=== PATIENT | female | born 1980 | race American Indian/Alaskan Native ===

== ENCOUNTER 2020-10-22 18:29 | Emergency (ER) | payer SELFPAY | END 2020-10-22 18:30 | disposition left against medical advice (07) | LOC: ED 18:29 | DX: G43.909 Migraine, unspecified, not intractable, without status migrainosus (principal); Z53.21 Procedure and treatment not carried out due to patient leaving prior to being seen by health care provider ==

== ENCOUNTER 2021-06-07 13:24 | Emergency (ER) | payer MEDICARE ==
--- NOTE | 2021-06-07 14:59 | Emergency Department Report ---
ED General Adult HPI - General Chief complaint: Upper Respiratory Infection Stated complaint: DIZZY X 2 DAYS PUI?: Yes Time Seen by Provider: 06/07/21 14:51 Source: patient Mode of arrival: Ambulatory Limitations: No Limitations - History of Present Illness Initial comments: 40-year-old female who denies any significant past medical history presents to the ER today with complaints of flulike symptoms. Patient states that symptoms started about 2 days ago. She reports generalized body aches, ear pain, headache, mild dry cough and fever. She reports no wheezing or shortness of breath. She reports no chest pain. She states that her highest measured temp was 101.9 today. She has not taken anything for the fever. She denies any chills. She states that she did vomit twice. She denies any diarrhea or abdominal pain. She denies any UTI symptoms. She is status post hysterectomy. She denies any known ill contacts or recent travel. She has not had a flu vaccine or COVID-19 vaccine. MD Complaint: Flu like symptoms -: days(s) (2) Severity scale (0 -10): 10 - Related Data Previous Rx's Medication Instructions Recorded Last Taken Type Acetaminophen/Codeine [Tylenol 1 tab PO Q6H PRN #12 tab 06/07/21 Unknown Rx /Codeine # 3 tab] Fluconazole [Diflucan TAB] 150 mg PO QDAY 1 Days #3 tablet 06/07/21 Unknown Rx Ibuprofen [Motrin] 600 mg PO Q8H PRN #30 tablet 06/07/21 Unknown Rx cephALEXin [Keflex] 500 mg PO BID 7 Days #14 capsule 06/07/21 Unknown Rx Allergies Allergy/AdvReac Type Severity Reaction Status Date / Time No Known Allergies Allergy Verified 06/07/21 15:07 ED Review of Systems ROS: Stated complaint: DIZZY X 2 DAYS Other details as noted in HPI Comment: All other systems reviewed and negative Constitutional: fever ENT: ear pain. denies: throat pain, congestion Respiratory: cough. denies: shortness of breath, SOB with exertion, SOB at rest, wheezing Cardiovascular: denies: chest pain, palpitations Endocrine: no symptoms reported Gastrointestinal: nausea, vomiting. denies: abdominal pain, diarrhea, cons tipation, hematemesis, melena, hematochezia Genitourinary: denies: urgency, dysuria, discharge Musculoskeletal: myalgia. denies: back pain, joint swelling, arthralgia Skin: denies: rash, lesions, change in color, change in hair/nails, pruritus Neurological: denies: numbness, paresthesias, abnormal gait, vertigo Psychiatric: denies: anxiety, depression, auditory hallucinations, visual hallucinations, homicidal thoughts, suicidal thoughts Hematological/Lymphatic: denies: easy bleeding, easy bruising, swollen glands ED Past Medical Hx - Medications Home Medications: Home Medications Medication Instructions Recorded Confirmed Last Taken Type Acetaminophen/Codeine [Tylenol 1 tab PO Q6H PRN #12 tab 06/07/21 Unknown Rx /Codeine # 3 tab] Fluconazole [Diflucan TAB] 150 mg PO QDAY 1 Days #3 tablet 06/07/21 Unknown Rx Ibuprofen [Motrin] 600 mg PO Q8H PRN #30 tablet 06/07/21 Unknown Rx cephALEXin [Keflex] 500 mg PO BID 7 Days #14 capsule 06/07/21 Unknown Rx ED Physical Exam - General Limitations: No Limitations General appearance: alert, in no apparent distress, other (Mildly ill appearing but overall not toxic ) - Head Head exam: Present: atraumatic, normocephalic, normal inspection - Eye Eye exam: Present: normal appearance, PERRL, EOMI Pupils: Present: normal accommodation - ENT ENT exam: Present: normal exam, mucous membranes moist - Expanded ENT Exam Expanded TM/Canal exam: Effusion: Right TM, Left TM Mouth exam: Present: normal external inspection Teeth exam: Present: normal inspection Throat exam: Positive: normal inspection - Neck Neck exam: Present: normal inspection, full ROM. Absent: meningismus, lymphadenopathy - Respiratory Respiratory exam: Present: normal lung sounds bilaterally. Absent: respiratory distress, wheezes, rales, rhonchi - Cardiovascular Cardiovascular Exam: Present: normal rhythm, tachycardia, normal heart sounds - GI/Abdominal GI/Abdominal exam: Present: soft. Absent: distended, tenderness, guarding, rebound - Neurological Exam Neurological exam: Present: alert, oriented X3, CN II-XII intact, normal gait - Psychiatric Psychiatric exam: Present: normal affect, normal mood - Skin Skin exam: Present: intact ED Course Vital Signs 06/07/21 06/07/21 14:53 17:04 Temperature 101.8 F H 99.1 F Pulse Rate 99 H 88 Respiratory 18 18 Rate Blood Pressure 145/77 122/72 [Left] O2 Sat by Pulse 99 98 Oximetry ED Medical Decision Making - Lab Data Result diagrams: 06/07/21 15:23 06/07/21 14:58 - Radiology Data Radiology results: report reviewed Patient: MYKE CORTÉS MR#: [id number] [birth year] : 1980 Acct:[id number] Age/Sex: 40 / F ADM Date: 06/07/21 Loc: ED Attending Dr: Ordering Physician: RICK LANDRY Date of Service: 06/07/21 Procedure(s): XR chest routine 2V Accession Number(s): [id number] cc: RICK LANDRY Fluoro Time In Minutes: CHEST 2 VIEWS INDICATION / CLINICAL INFORMATION: Cough/fever. COMPARISON: None available. FINDINGS: SUPPORT DEVICES: None. HEART / MEDIASTINUM: No significant abnormality. LUNGS / PLEURA: No significant pulmonary or pleural abnormality. No pneumothorax. ADDITIONAL FINDINGS: Scoliotic curvature of the spine IMPRESSION: 1. No acute findings. Signer Name: Panchito Lee MD Signed: 06/07/2021 3:25 PM Workstation Name: [id number] Transcribed By: CW Dictated By: ABHIJIT LEE MD Electronically Authenticated By: ABHIJIT LEE MD Signed Date/Time: 06/07/21 152 DD/ 152 TD/TT: - Medical Decision Making Patient reports feeling better after meds and fluids. She is currently non-toxic or ill appearing. She has no meningeal signs on exam. She is not in any significant pain or respiratory distress. She is neurologically intact with normal gait. Repeat vital signs improved after meds. She is hemodynamically stable. CXR shows nothing acute. rapid flu negative CBC and CMP unremarkable. UA concerning UTI and yeast. Discussed all results with patient. Discussed concerning diagnosis with patient. Still recommend that she gets an outpatient COVID-19 test. Discussed treatment plan with patient. Patient expressed understanding of all instructions and agree with plan. Patient stable at time of discharge. Critical care attestation.: If time is entered above; I have spent that time in minutes in the direct care of this critically ill patient, excluding procedure time. ED Disposition Clinical Impression: Viral syndrome, Yeast infection UTI (urinary tract infection) Qualifiers: Urinary tract infection type: acute cystitis Hematuria presence: with hematuria Qualified Code(s): N30.01 - Acute cystitis with hematuria Disposition: HOME / SELF CARE / HOMELESS Is pt being admited?: No Does the pt Need Aspirin: No Condition: Stable Instructions: Vaginal Yeast Infection, Adult, Urinary Tract Infection, Adult, Viral Illness, Adult Additional Instructions: Your symptoms could be related to nonspecific viral illness, but COVID-19 is still a possibility and I recommend that she get a COVID-19 test once you leave here today. You can get a test done at any local urgent care or pharmacy. In the meantime I recommend that you drink lots of fluids. Continue to monitor your temperature for fever, you can alternate Tylenol with ibuprofen for fever. Do not take any additional Tylenol if you take the Tylenol 3. You can take o sonia the counter cough, cold medications. Take a maintain vitamin C, zinc and D. Follow-up with your PCP. Return to the ER if your symptoms worsens in any way. Prescriptions: Fluconazole [Diflucan TAB] 150 mg PO QDAY 1 Days #3 tablet cephALEXin [Keflex] 500 mg PO BID 7 Days #14 capsule Ibuprofen [Motrin] 600 mg PO Q8H PRN #30 tablet PRN Reason: Pain Acetaminophen/Codeine [Tylenol /Codeine # 3 tab] 1 tab PO Q6H PRN #12 tab PRN Reason: Pain , Severe (7-10) Referrals: PRIMARY CARE, [Primary Care Provider] - 3-5 Days Forms: Work/School Release Form(ED) Time of Disposition: 17:17
--- NOTE | 2021-06-07 15:29 | XRay Report ---
CHEST 2 VIEWS INDICATION / CLINICAL INFORMATION: Cough/fever. COMPARISON: None available. FINDINGS: SUPPORT DEVICES: None. HEART / MEDIASTINUM: No significant abnormality. LUNGS / PLEURA: No significant pulmonary or pleural abnormality. No pneumothorax. ADDITIONAL FINDINGS: Scoliotic curvature of the spine IMPRESSION: 1. No acute findings. Signer Name: Panchito Lee MD Signed: 06/07/2021 3:25 PM Workstation Name: [id number]
[2021-06-07] MEDS ORDERED: ACETAMINOPHEN 500 MG TAB PO NR (15:30)
[2021-06-07] MEDS ORDERED: KETOROLAC 30 MG/1 ML INJ IV NR (15:30)
[2021-06-07 15:45] LABS: Basophils % (Auto) 0.5 % (0.0-1.8); Eosinophils % (Auto) 0.3 % (0.0-4.3); Hematocrit 40.5 % (30.3-42.9); Hemoglobin 12.7 gm/dl (10.1-14.3); Lymphocytes # (Auto) 0.7 K/mm3 (1.2-5.4); Lymphocytes % (Auto) 7.8 % (13.4-35.0); Mean Corpuscular HGB Conc 32 % (30-34); Mean Corpuscular Volume 80 fl (79-97); Monocytes % (Auto) 10.8 % (0.0-7.3); Platelet Count 262 K/mm3 (140-440); Red Blood Count 5.03 M/mm3 (3.65-5.03); Red Cell Distribution Width 18.9 % (13.2-15.2)
[2021-06-07 16:04] LABS: Alanine Aminotransferase 31 units/L (7-56); Albumin 4.2 g/dL (3.9-5); BUN/Creatinine Ratio 9; Blood Urea Nitrogen 8 mg/dL (7-17); Hemolysis Index 61
[2021-06-07 17:05] VITALS: BP 122/72
[2021-06-07 17:32] LABS: Bacteria,Urine 4+ /HPF (Negative); Bilirubin,Urine NEG (Negative); Blood,Urine SM (Negative); Color,Urine Yellow (Yellow); Mucus,Urine 1+ /HPF
== END 2021-06-07 18:03 | disposition home or self-care (01) ==
LOC: ED 13:24
DX: B34.9 Viral infection, unspecified (principal); N30.01 Acute cystitis with hematuria
CPT/HCPCS: 36415; 71046; 80053; 81001; 83735; 85025; 87086; 87400; 96374; 99284; J1885